=== PATIENT | female | born 1965 | race Caucasian/White ===

== ENCOUNTER 2018-03-07 16:20 | Emergency (ER) | payer MEDICAID, OTHER ==
[~2018-03-07] VITALS: Ht 154.9 cm; Wt 93.0 kg
[2018-03-07] MEDS ORDERED: ipratropium/albuterol 3ml nebule NEB ONE (16:30)
[2018-03-07] MEDS ORDERED: methylPREDNISolone sod succ 125mg/2ml vial IV ONE (16:30)
[2018-03-07 17:08] LABS: BASOPHILS # (AUTO) 0.1 X10'3 (0-0.2); BASOPHILS % (AUTO) 2.6 % (0-1); EOSINOPHILS # (AUTO) 0.2 X10'3 (0-0.9); EOSINOPHILS % (AUTO) 5.5 % (0-6); HEMATOCRIT 28.6 % (35.0-45.0); HEMOGLOBIN 9.8 g/dl (12.0-16.0); LYMPHOCYTES # (AUTO) 0.9 X10'3 (1.1-4.8); LYMPHOCYTES % (AUTO) 22.1 % (21-51); MEAN CORPUSCULAR HEMOGLOBIN 31.8 PG (27.0-31.0); MEAN CORPUSCULAR HGB CONC 34.4 g/dL (33.0-36.5); MEAN CORPUSCULAR VOLUME 92.4 FL (78-98); MEAN PLATELET VOLUME 8.4 FL (7.4-10.4); MONOCYTES # (AUTO) 0.3 X10'3 (0-0.9); MONOCYTES % (AUTO) 7.6 % (2-12); NEUTROPHILS # (AUTO) 2.5 X10'3 (1.8-7.7); NEUTROPHILS % (AUTO) 62.2 % (42-75); PLATELET COUNT 67 X10'3 (140-440); RED BLOOD COUNT 3.09 X10'6 (4.20-5.60); RED CELL DISTRIBUTION WIDTH 14.4 % (11.5-14.5); WHITE BLOOD COUNT 4.1 X10'3 (4.5-11.0)
[2018-03-07 17:21] LABS: ALANINE AMINOTRANSFERASE 27 U/L (12-78); ALBUMIN 2.6 G/DL (3.4-5.0); ALBUMIN/GLOBULIN RATIO 0.8 (1.1-1.5); ALKALINE PHOSPHATASE 110 IU/L (46-116); ANION GAP 9 (8-16); ASPARTATE AMINO TRANSFERASE 30 U/L (10-37); BILIRUBIN,TOTAL 0.8 MG/DL (0.1-1.0); BLOOD UREA NITROGEN 26 MG/DL (7-18); BUN/CREATININE RATIO 20.6 (6.6-38.0); CALCIUM 8.6 MG/DL (8.5-10.1); CHLORIDE 114 MMOL/L (99-107); CREATININE 1.26 MG/DL (0.40-0.90); GLUCOSE 56 MG/DL (70-104); POTASSIUM 4.1 MMOL/L (3.5-5.1); SODIUM 145 MMOL/L (135-145); TOTAL CARBON DIOXIDE 22.2 MMOL/L (24-32); eGFR 44 ML/MIN
--- NOTE | 2018-03-07 17:40 | NUR ---
pt is resting quietly on gurney, resp even and unlabored
--- NOTE | 2018-03-07 17:52 | NUR ---
PT AMB WITH MIN ASSIST TO RESTROOM
[2018-03-07] MEDS ORDERED: AZIT250T83 PO (18:13)
[2018-03-07] MEDS ORDERED: oxyCODONE IR 5mg (immed. release) tablet PO ONE (18:45)
[2018-03-07 18:53] VITALS: BP 124/73
[2018-03-08 10:41] LABS: OCCULT BLOOD STOOL NEGATIVE (Neg)
== END 2018-03-07 19:00 | disposition home or self-care (01) ==
LOC: ER 16:20
DX: I85.00 Esophageal varices without bleeding (principal); R42 Dizziness and giddiness; G89.29 Other chronic pain; D64.9 Anemia, unspecified; R05 Cough; Z90.710 Acquired absence of both cervix and uterus; Z95.0 Presence of cardiac pacemaker; Z88.0 Allergy status to penicillin; Z88.5 Allergy status to narcotic agent; Z88.1 Allergy status to other antibiotic agents; Z88.6 Allergy status to analgesic agent; Z88.2 Allergy status to sulfonamides
CPT/HCPCS: 36415; 71045; 80053; 82272; 82948; 85025; 93005; 94640; 94760; 96374; 99284; J2930

== ENCOUNTER 2018-03-12 21:15 | Emergency (ER) | payer MEDICAID ==
[~2018-03-12] VITALS: Ht 154.9 cm; Wt 100.0 kg
[~2018-03-12 21:15] MED LIST: AZIT250T83 PO
[2018-03-12 21:46] LABS: BASOPHILS % (AUTO) 0.4 % (0-1); EOSINOPHILS # (AUTO) 0.2 X10'3 (0-0.9); HEMATOCRIT 32.1 % (35.0-45.0); LYMPHOCYTES # (AUTO) 0.9 X10'3 (1.1-4.8); LYMPHOCYTES % (AUTO) 21.8 % (21-51); MEAN CORPUSCULAR HEMOGLOBIN 31.7 PG (27.0-31.0); MEAN CORPUSCULAR HGB CONC 34.4 g/dL (33.0-36.5); MEAN CORPUSCULAR VOLUME 92.1 FL (78-98); MEAN PLATELET VOLUME 7.7 FL (7.4-10.4); MONOCYTES # (AUTO) 0.3 X10'3 (0-0.9); MONOCYTES % (AUTO) 8.3 % (2-12); NEUTROPHILS # (AUTO) 2.7 X10'3 (1.8-7.7); NEUTROPHILS % (AUTO) 64.5 % (42-75); PLATELET COUNT 77 X10'3 (140-440); RED BLOOD COUNT 3.48 X10'6 (4.20-5.60); RED CELL DISTRIBUTION WIDTH 14.2 % (11.5-14.5); WHITE BLOOD COUNT 4.2 X10'3 (4.5-11.0)
[2018-03-12 22:05] LABS: INR 1.2 INR; PARTIAL THROMBOPLASTIN TIME 29 SECONDS (22-32); PROTHROMBIN TIME 12.1 SECONDS (9.0-12.0)
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
[2018-03-12 22:06] LABS: ALANINE AMINOTRANSFERASE 35 U/L (12-78); ALBUMIN/GLOBULIN RATIO 0.8 (1.1-1.5); ALKALINE PHOSPHATASE 120 IU/L (46-116); ANION GAP 6 (8-16); ASPARTATE AMINO TRANSFERASE 34 U/L (10-37); BILIRUBIN,TOTAL 1.1 MG/DL (0.1-1.0); BLOOD UREA NITROGEN 26 MG/DL (7-18); BUN/CREATININE RATIO 18.7 (6.6-38.0); CHLORIDE 111 MMOL/L (99-107); CREATININE 1.39 MG/DL (0.40-0.90); GLUCOSE 102 MG/DL (70-104); POTASSIUM 5.3 MMOL/L (3.5-5.1); SODIUM 144 MMOL/L (135-145); TOTAL CARBON DIOXIDE 27.5 MMOL/L (24-32); TOTAL PROTEIN 6.9 G/DL (6.4-8.2); eGFR 40 ML/MIN
[2018-03-12] MEDS ORDERED: sodium polystyrene sulfonate 15gm/60ml oral suspension PO ONE ×2 (22:30→23:50)
[2018-03-12 22:49] LABS: D-DIMER 0.65 MG/L FEU (0-0.50)
[2018-03-12] MEDS ORDERED: normal saline 1000ML IV soln IVB ONE (23:10)
[2018-03-12] MEDS ORDERED: iohexol 350MG/ML 100ml bottle IV ONE (23:24)
[2018-03-12] MEDS ORDERED: SYN0.088T PO (23:40)
[2018-03-12] MEDS ORDERED: POTA10TA10 PO (23:40)
[2018-03-12] MEDS ORDERED: LACT10SO PO (23:40)
[2018-03-12] MEDS ORDERED: ALBU18HF2 INH (23:40)
[2018-03-12] MEDS ORDERED: PER5325T PO (23:40)
[2018-03-12] MEDS ORDERED: FURO-150 PO (23:40)
--- NOTE | 2018-03-12 23:53 | NUR ---
Pt up to the BR and now going out to CT via w/c. Spouse remains in the room.
--- NOTE | 2018-03-13 00:08 | NUR ---
pt back from ct
[2018-03-13] MEDS ORDERED: HYDROcodone/acetaminophen 5mg/325mg tablet PO ONE (00:15)
--- NOTE | 2018-03-13 00:15 | NUR ---
notified MD of the patient having some pain, and that she wouldl like some pain medicine.
--- NOTE | 2018-03-13 00:21 | NUR ---
gave pt a liter of ice water.
[2018-03-13 01:31] VITALS: BP 125/59
== END 2018-03-13 01:41 | disposition home or self-care (01) ==
LOC: ER 21:21
DX: R06.02 Shortness of breath (principal); R07.9 Chest pain, unspecified; R61 Generalized hyperhidrosis; Z90.710 Acquired absence of both cervix and uterus; Z95.0 Presence of cardiac pacemaker; Z88.0 Allergy status to penicillin; Z88.5 Allergy status to narcotic agent; Z88.2 Allergy status to sulfonamides; Z88.6 Allergy status to analgesic agent; Z88.8 Allergy status to other drugs, medicaments and biological substances; Z79.899 Other long term (current) drug therapy
CPT/HCPCS: 36415; 71045; 71275; 80053; 83880; 84484; 85025; 85379; 85610; 85730; 93005; 99284; J7030; Q9967

== ENCOUNTER 2018-03-25 22:51 | Emergency (ER) | payer MEDICAID ==
[~2018-03-25] VITALS: Ht 154.9 cm; Wt 85.5 kg
[~2018-03-25 22:51] MED LIST changes: +ALBU18HF2 INH; -AZIT250T83 PO; +FURO-150 PO; +LACT10SO PO; +PER5325T PO; +POTA10TA10 PO; +SYN0.088T PO
[2018-03-25 22:57] VITALS: BP 141/65
[2018-03-26] MEDS ORDERED: oxyCODONE/APAP 5-325mg tablet PO ONE (01:05)
[2018-03-26 01:07] LABS: CLARITY,URINE CLEAR (Clear); COLOR,URINE YELLOW (Yellow); GLUCOSE, URINE NEGATIVE (Neg); KETONES,URINE NEGATIVE (Neg); LEUKOCYTE ESTERASE ,URINE TRACE (Neg); NITRITES, URINE NEGATIVE (Neg); OCCULT BLOOD,URINE TRACE-INTACT (Neg); PH,URINE 5.5 (4.8-8.0); PROTEIN,URINE NEGATIVE (Neg); UROBILINOGEN,URINE 0.2 E.U/dL (0.2-1.0)
[2018-03-26 01:08] LABS: UA COLLECTION TYPE CLN CATCH MIDSTREAM
[2018-03-26 01:33] LABS: BACTERIA,URINE 2+ /HPF (Neg); MUCUS STRANDS FEW /LPF (Neg); RBC,URINE 0-2 /HPF (0-2); SQUAMOUS EPITHELIAL CELL,UR FEW /LPF (FEW); WBC,URINE 0-4 /HPF (0-4)
--- NOTE | 2018-03-26 01:52 | NUR ---
PT WENT TO CT AND IS NOW BACK FROM CT.
[2018-03-26] MEDS ORDERED: levoFLOXACIN 250mg tablet PO ONE (02:20)
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
[2018-03-26] MEDS ORDERED: LEVO250T58 PO (02:34)
[2018-03-26 02:37] LABS: ALANINE AMINOTRANSFERASE 32 U/L (12-78); ALBUMIN 3.2 G/DL (3.4-5.0); ALBUMIN/GLOBULIN RATIO 0.9 (1.1-1.5); ALKALINE PHOSPHATASE 99 IU/L (46-116); ANION GAP 10 (8-16); ASPARTATE AMINO TRANSFERASE 46 U/L (10-37); BILIRUBIN,TOTAL 2.4 MG/DL (0.1-1.0); BLOOD UREA NITROGEN 14 MG/DL (7-18); BUN/CREATININE RATIO 10.1 (6.6-38.0); CALCIUM 9.3 MG/DL (8.5-10.1); CHLORIDE 109 MMOL/L (99-107); CREATININE 1.38 MG/DL (0.40-0.90); GLUCOSE 85 MG/DL (70-104); SODIUM 142 MMOL/L (135-145); TOTAL CARBON DIOXIDE 22.8 MMOL/L (24-32); TOTAL PROTEIN 6.9 G/DL (6.4-8.2); eGFR 40 ML/MIN
[2018-03-26 03:35] LABS: BASOPHILS % (AUTO) 0.3 % (0-1); EOSINOPHILS # (AUTO) 0.3 X10'3 (0-0.9); EOSINOPHILS % (AUTO) 7.7 % (0-6); HEMATOCRIT 34.8 % (35.0-45.0); LYMPHOCYTES # (AUTO) 1.2 X10'3 (1.1-4.8); LYMPHOCYTES % (AUTO) 29.1 % (21-51); MEAN CORPUSCULAR HGB CONC 34.3 g/dL (33.0-36.5); MEAN CORPUSCULAR VOLUME 93.2 FL (78-98); MEAN PLATELET VOLUME 8.5 FL (7.4-10.4); MONOCYTES # (AUTO) 0.3 X10'3 (0-0.9); MONOCYTES % (AUTO) 6.7 % (2-12); NEUTROPHILS # (AUTO) 2.5 X10'3 (1.8-7.7); NEUTROPHILS % (AUTO) 56.2 % (42-75); PLATELET COUNT 79 X10'3 (140-440); RED BLOOD COUNT 3.73 X10'6 (4.20-5.60); RED CELL DISTRIBUTION WIDTH 14.4 % (11.5-14.5); WHITE BLOOD COUNT 4.3 X10'3 (4.5-11.0)
== END 2018-03-26 03:57 | disposition home or self-care (01) ==
LOC: ER 22:52
DX: N39.0 Urinary tract infection, site not specified (principal); Z90.710 Acquired absence of both cervix and uterus; Z88.0 Allergy status to penicillin; Z88.5 Allergy status to narcotic agent; Z88.2 Allergy status to sulfonamides; Z88.6 Allergy status to analgesic agent; Z88.8 Allergy status to other drugs, medicaments and biological substances; Z79.899 Other long term (current) drug therapy; Z95.0 Presence of cardiac pacemaker
CPT/HCPCS: 36415; 74176; 80053; 81001; 85025; 87077; 87088; 87186; 99284

== ENCOUNTER 2018-06-11 11:55 | Day surgery (SDC) | payer MEDICAID ==
[~2018-06-11] VITALS: Ht 154.9 cm; Wt 90.9 kg
[2018-06-11 12:10] VITALS: BP 137/51
[2018-06-11] MEDS ORDERED: MIDAZolam 5mg/5ml vial ONE (12:26)
[2018-06-11] MEDS ORDERED: LIDOcaine Viscous 15ml cup ONE (12:26)
[2018-06-11] MEDS ORDERED: fentaNYL/PF 50MCG/1 ML 2ML syringe ONE (12:26)
[2018-06-11 13:07] VITALS: BP 117/72
[2018-06-11 13:17] VITALS: BP 108/62
[2018-06-11 13:27] VITALS: BP 101/68
[2018-06-11 13:32] VITALS: BP 107/64
== END 2018-06-11 13:40 | disposition home or self-care (01) ==
LOC: GI LAB 11:55
PROVIDERS: ATTEND Internal Medicine Gastroenterology
DX: I85.00 Esophageal varices without bleeding (principal); K76.6 Portal hypertension; K31.89 Other diseases of stomach and duodenum
CPT/HCPCS: 43235; J2250; J3010; J7030; 99152; A4620

== ENCOUNTER 2018-06-30 13:26 | Inpatient (IN) | payer MEDICAID ==
[~2018-06-30] VITALS: Ht 154.9 cm; Wt 90.0 kg
[~2018-06-30 13:26] MED LIST changes: -FURO-150 PO; -LACT10SO PO; -PER5325T PO; -POTA10TA10 PO
[2018-06-30 14:19] LABS: PARTIAL THROMBOPLASTIN TIME 31 SECONDS (22-32)
[2018-06-30 14:25] LABS: ALANINE AMINOTRANSFERASE 27 U/L (12-78); ALBUMIN 3.2 G/DL (3.4-5.0); ALBUMIN/GLOBULIN RATIO 0.9 (1.1-1.5); ALKALINE PHOSPHATASE 106 IU/L (46-116); ANION GAP 14 (8-16); ASPARTATE AMINO TRANSFERASE 33 U/L (10-37); BLOOD UREA NITROGEN 21 MG/DL (7-18); BUN/CREATININE RATIO 8.7 (6.6-38.0); CALCIUM 9.3 MG/DL (8.5-10.1); CHLORIDE 105 MMOL/L (99-107); CREATININE 2.41 MG/DL (0.40-0.90); GLUCOSE 112 MG/DL (70-104); SODIUM 138 MMOL/L (135-145); TOTAL CARBON DIOXIDE 18.8 MMOL/L (24-32); TOTAL PROTEIN 6.7 G/DL (6.4-8.2); eGFR 21 ML/MIN
[2018-06-30 14:43] LABS: BASOPHILS % (AUTO) 0.5 % (0-1); EOSINOPHILS # (AUTO) 0.2 X10'3 (0-0.9); EOSINOPHILS % (AUTO) 1.8 % (0-6); HEMOGLOBIN 11.4 g/dl (12.0-16.0); LYMPHOCYTES # (AUTO) 1.3 X10'3 (1.1-4.8); LYMPHOCYTES % (AUTO) 14.5 % (21-51); MEAN CORPUSCULAR HEMOGLOBIN 31.5 PG (27.0-31.0); MEAN CORPUSCULAR HGB CONC 34.7 g/dL (33.0-36.5); MEAN CORPUSCULAR VOLUME 90.9 FL (78-98); MONOCYTES # (AUTO) 0.6 X10'3 (0-0.9); MONOCYTES % (AUTO) 7.3 % (2-12); NEUTROPHILS # (AUTO) 6.7 X10'3 (1.8-7.7); NEUTROPHILS % (AUTO) 75.9 % (42-75); PLATELET COUNT 93 X10'3 (140-440); RED BLOOD COUNT 3.63 X10'6 (4.20-5.60); WHITE BLOOD COUNT 8.8 X10'3 (4.5-11.0)
[2018-06-30] MEDS ORDERED: normal saline 1000ml 1,000 ML IV ONE ×2 (14:45→17:15)
[2018-06-30] MEDS ORDERED: ondansetron/PF 4mg/2ml inj IV ONE (15:10)
[2018-06-30] MEDS ORDERED: LORazepam 2 mg/ml vial IV ONE (15:20)
[2018-06-30 15:35] LABS: LIPASE 254 U/L (73-393)
[2018-06-30] MEDS ORDERED: pantoprazole 40 MG vial IV ONE (15:45)
[2018-06-30] MEDS ORDERED: octreotide 100mcg/1 ml ampule IV ONE (15:45)
[2018-06-30] MEDS: pantoprazole 40MG/NS 100ML BAG 100 ML IV SCH ×2 (16:06→21:38)
[2018-06-30] MEDS ORDERED: mag hydrox/Alum hydrox/simeth 30ml oral suspension PO PRN (16:55)
[2018-06-30] MEDS ORDERED: potassium CL 10mEq/100ml bag 100 ML IV PRN (16:55)
[2018-06-30] MEDS ORDERED: potassium Cl 20 mEq SR tablet PO PRN ×2 (16:55)
[2018-06-30] MEDS ORDERED: magnesium hydroxide 30ml (MOM) UD suspension PO PRN (16:55)
[2018-06-30] MEDS ORDERED: acetaminophen 325mg tablet PO PRN ×2 (16:55)
[2018-06-30] MEDS ORDERED: magnesium Cl slow-release 64mg tablet PO PRN (16:55)
[2018-06-30] MEDS ORDERED: magnesium 4gm in 100ml NS 100 ML IV PRN (16:55)
[2018-06-30] MEDS ORDERED: potassium Cl 40MEQ/NS 500ml 500 ML IV PRN (16:55)
[2018-06-30] MEDS ORDERED: magnesium 2GM in 50ml NS 50 ML IV PRN (16:55)
[2018-06-30 17:17] LABS: OCCULT BLOOD STOOL POSITIVE (Neg)
[2018-06-30] MEDS ORDERED: morphine 2 MG/ML inj. syringe IV ONE (17:25)
--- NOTE | 2018-06-30 17:34 | NUR ---
Received patient report from ER nurse Veda DAIGLE. Awaiting arrival to room 356B.
[2018-06-30 17:39] LABS: HEMATOCRIT 31.6 % (35.0-45.0); MEAN CORPUSCULAR HEMOGLOBIN 31.4 PG (27.0-31.0); MEAN CORPUSCULAR HGB CONC 34.7 g/dL (33.0-36.5); MEAN CORPUSCULAR VOLUME 90.4 FL (78-98); MEAN PLATELET VOLUME 8.4 FL (7.4-10.4); PLATELET COUNT 94 X10'3 (140-440); RED CELL DISTRIBUTION WIDTH 15.5 % (11.5-14.5); WHITE BLOOD COUNT 9.1 X10'3 (4.5-11.0)
[2018-06-30] MEDS ORDERED: morphine 2 MG/ML inj. syringe IV PRN (17:55)
[2018-06-30 18:00] VITALS: BP 98/71
--- NOTE | 2018-06-30 18:00 | NUR ---
Patient arrived to room 356B. VSS. Patient oriented to room, call light, bed controls. at bedside.
[2018-06-30] MEDS ORDERED: normal saline 1000ml 1,000 ML IV PRN (18:05)
--- NOTE | 2018-06-30 18:45 | NUR ---
Problems reprioritized. Patient report given, questions answered & plan of care reviewed with Surinder DAIGLE.
--- NOTE | 2018-06-30 18:50 | NUR ---
Patient in room NIA 356. I have received report from LAURA DAIGLE and had the opportunity to ask questions and assume patient care.
[2018-06-30] MEDS: ondansetron/PF 4mg/2ml inj IV PRN (18:58)
[2018-06-30] MEDS: morphine 2 MG/ML inj. syringe IV PRN ×2 (18:59→23:55)
[2018-06-30] MEDS ORDERED: dextrose ORAL solution 15 GM/59 ML bottle PO PRN ×2 (19:40)
[2018-06-30] MEDS ORDERED: glucagon, human recombinant 1mg kit SUBCUT PRN (19:40)
[2018-06-30] MEDS ORDERED: dextrose 50%-water 50ml dispensing syringe IV PRN ×2 (19:40)
[2018-06-30] MEDS: OCTREOTIDE 1,250 MCG in NS 250ml IV.SOLN IV SCH (19:48)
--- NOTE | 2018-06-30 22:00 | NUR ---
BLADDER SCAN DONE WITH READING OF 116ML, NO COMPLAINTS OF DISCOMFORT. WILL REPEAT BLADDER SCAN IN 4 HOURS.
[2018-07-01] VITALS (12 sets, daily range): BP systolic 91–131; BP diastolic 33–98
[2018-07-01] MEDS: pantoprazole 40MG/NS 100ML BAG 100 ML IV SCH ×4 (01:00→16:00)
--- NOTE | 2018-07-01 01:30 | NUR ---
BLADDER SCAN DONE WITH RESULT OF 237ML. PATIENT HAS NO DISCOMFORT.
[2018-07-01] MEDS: morphine 2 MG/ML inj. syringe IV PRN ×4 (03:49→21:25)
--- NOTE | 2018-07-01 05:00 | NUR ---
BLADDER SCAN 320ML STILL UNABLE TO URINATE. CROCKETT CATH INSERTED ASEPTICALLY ORDERED.
[2018-07-01 05:37] LABS: CLARITY,URINE SLIGHTLY CLOUDY (Clear); COLOR,URINE YELLOW (Yellow); GLUCOSE, URINE NEGATIVE (Neg); KETONES,URINE TRACE mg/dl (Neg); LEUKOCYTE ESTERASE ,URINE NEGATIVE (Neg); NITRITES, URINE NEGATIVE (Neg); OCCULT BLOOD,URINE NEGATIVE (Neg); PH,URINE 5.5 (4.8-8.0); PROTEIN,URINE 30 mg/dl (Neg); UROBILINOGEN,URINE 0.2 E.U/dL (0.2-1.0)
[2018-07-01 05:38] LABS: URINE HCG NEGATIVE (NEG)
[2018-07-01 06:01] LABS: UA COLLECTION TYPE OTHER
[2018-07-01 06:02] LABS: AMORPHOUS URATES 1+; BACTERIA,URINE NONE SEEN /HPF (Neg); MUCUS STRANDS MODERATE /LPF (Neg); SQUAMOUS EPITHELIAL CELL,UR FEW /LPF (FEW); WBC,URINE 0-4 /HPF (0-4)
[2018-07-01 06:07] LABS: ANION GAP 13 (8-16); BLOOD UREA NITROGEN 26 MG/DL (7-18); BUN/CREATININE RATIO 7.6 (6.6-38.0); CALCIUM 8.5 MG/DL (8.5-10.1); CHLORIDE 103 MMOL/L (99-107); CREATININE 3.41 MG/DL (0.40-0.90); GLUCOSE 107 MG/DL (70-104); MAGNESIUM 1.6 MG/DL (1.5-2.4); POTASSIUM 4.1 MMOL/L (3.5-5.1); SODIUM 135 MMOL/L (135-145); TOTAL CARBON DIOXIDE 19.5 MMOL/L (24-32); eGFR 14 ML/MIN
[2018-07-01 06:15] LABS: BASOPHILS % (AUTO) 0.5 % (0-1); EOSINOPHILS # (AUTO) 0.2 X10'3 (0-0.9); EOSINOPHILS % (AUTO) 2.6 % (0-6); HEMATOCRIT 29.4 % (35.0-45.0); HEMOGLOBIN 10.4 g/dl (12.0-16.0); LYMPHOCYTES # (AUTO) 1.5 X10'3 (1.1-4.8); LYMPHOCYTES % (AUTO) 22.5 % (21-51); MEAN CORPUSCULAR HGB CONC 35.5 g/dL (33.0-36.5); MEAN CORPUSCULAR VOLUME 90.2 FL (78-98); MEAN PLATELET VOLUME 8.3 FL (7.4-10.4); MONOCYTES # (AUTO) 0.6 X10'3 (0-0.9); MONOCYTES % (AUTO) 9.7 % (2-12); NEUTROPHILS # (AUTO) 4.3 X10'3 (1.8-7.7); NEUTROPHILS % (AUTO) 64.7 % (42-75); PLATELET COUNT 76 X10'3 (140-440); RED BLOOD COUNT 3.25 X10'6 (4.20-5.60); RED CELL DISTRIBUTION WIDTH 15.3 % (11.5-14.5); WHITE BLOOD COUNT 6.6 X10'3 (4.5-11.0)
--- NOTE | 2018-07-01 06:30 | NUR ---
Problems reprioritized. Patient report given, questions answered & plan of care reviewed with RAMÓN DAIGLE.
[2018-07-01] MEDS: K and/or MAG REPLACEMENT MC SCH (07:43)
[2018-07-01] MEDS ORDERED: LIDOcaine Viscous 15ml cup ONE (09:34)
[2018-07-01] MEDS ORDERED: fentaNYL/PF 50MCG/1 ML 2ML syringe ONE ×2 (09:34→09:35)
[2018-07-01] MEDS ORDERED: MIDAZolam 5mg/5ml vial ONE (09:34)
[2018-07-01] MEDS ORDERED: normal saline 1000ml 1,000 ML IVB ONE (13:29)
[2018-07-01] MEDS: OCTREOTIDE 1,250 MCG in NS 250ml IV.SOLN IV SCH (19:05)
[2018-07-01] MEDS: diatr meglu/diatrizoate 30ml oral sol.-(3 dose) bottle PO SCH (21:10)
[2018-07-01] MEDS: pantoprazole 40mg Tablet.DR PO SCH (21:10)
[2018-07-02] VITALS: BP 89/44
[2018-07-02] MEDS: morphine 2 MG/ML inj. syringe IV PRN ×5 (02:50→22:12)
[2018-07-02 05:32] LABS: ALBUMIN 2.7 G/DL (3.4-5.0); ANION GAP 7 (8-16); BLOOD UREA NITROGEN 36 MG/DL (7-18); BUN/CREATININE RATIO 9.7 (6.6-38.0); CALCIUM 8.2 MG/DL (8.5-10.1); CHLORIDE 107 MMOL/L (99-107); CREATININE 3.73 MG/DL (0.40-0.90); GLUCOSE 97 MG/DL (70-104); POTASSIUM 4.4 MMOL/L (3.5-5.1); SODIUM 135 MMOL/L (135-145); TOTAL CARBON DIOXIDE 20.8 MMOL/L (24-32); eGFR 13 ML/MIN
[2018-07-02 05:52] LABS: BASOPHILS % (AUTO) 0.2 % (0-1); EOSINOPHILS # (AUTO) 0.1 X10'3 (0-0.9); EOSINOPHILS % (AUTO) 2.3 % (0-6); HEMATOCRIT 26.3 % (35.0-45.0); HEMOGLOBIN 9.4 g/dl (12.0-16.0); LYMPHOCYTES # (AUTO) 0.7 X10'3 (1.1-4.8); LYMPHOCYTES % (AUTO) 18.2 % (21-51); MEAN CORPUSCULAR HEMOGLOBIN 32.1 PG (27.0-31.0); MEAN CORPUSCULAR HGB CONC 35.6 g/dL (33.0-36.5); MEAN CORPUSCULAR VOLUME 90.1 FL (78-98); MEAN PLATELET VOLUME 8.3 FL (7.4-10.4); MONOCYTES # (AUTO) 0.3 X10'3 (0-0.9); MONOCYTES % (AUTO) 8.9 % (2-12); NEUTROPHILS # (AUTO) 2.7 X10'3 (1.8-7.7); NEUTROPHILS % (AUTO) 70.4 % (42-75); RED BLOOD COUNT 2.92 X10'6 (4.20-5.60); RED CELL DISTRIBUTION WIDTH 15.3 % (11.5-14.5); WHITE BLOOD COUNT 3.9 X10'3 (4.5-11.0)
[2018-07-02 06:51] LABS: PLATELET COUNT 47 X10'3 (140-440); PLATELET ESTIMATE DECREASED; POLYCHROMASIA 1+
--- NOTE | 2018-07-02 06:51 | NUR ---
Problems reprioritized. Patient report given, questions answered & plan of care reviewed with RAMÓN. Addendum: 07/02/18 at 0652 by Hank Wright RN Amended: Links added.
[2018-07-02 06:52] LABS: ANISOCYTOSIS 1+; ELLIPTOCYTES 1+
[2018-07-02 07:00] VITALS: BP 94/43
[2018-07-02] MEDS: diatr meglu/diatrizoate 30ml oral sol.-(3 dose) bottle PO SCH ×2 (07:04→21:00)
[2018-07-02] MEDS: levoTHYROXINE 88mcg tablet PO SCH (07:04)
[2018-07-02] MEDS: K and/or MAG REPLACEMENT MC SCH (07:26)
[2018-07-02] MEDS: pantoprazole 40mg Tablet.DR PO SCH ×2 (09:00→20:56)
[2018-07-02 12:00] VITALS: BP 105/53
[2018-07-02 17:00] VITALS: BP_SYST 104; BP_SYST 112; BP_SYST 85; BP_DIAS 40; BP_DIAS 50; BP_DIAS 71
--- NOTE | 2018-07-02 18:00 | NUR ---
Patient in room NIA 356. I have received report from Lesly DAIGLE and had the opportunity to ask questions and assume patient care. Patient awake in bed. at bedside. Denies further needs.
[2018-07-02 20:00] VITALS: BP 107/56
[2018-07-03] VITALS: BP 110/62
[2018-07-03 04:53] LABS: BASOPHILS % (AUTO) 0.9 % (0-1); EOSINOPHILS # (AUTO) 0.1 X10'3 (0-0.9); EOSINOPHILS % (AUTO) 2.5 % (0-6); HEMATOCRIT 29.3 % (35.0-45.0); HEMOGLOBIN 10.3 g/dl (12.0-16.0); LYMPHOCYTES # (AUTO) 0.7 X10'3 (1.1-4.8); LYMPHOCYTES % (AUTO) 22.8 % (21-51); MEAN CORPUSCULAR HEMOGLOBIN 31.9 PG (27.0-31.0); MEAN CORPUSCULAR HGB CONC 35.3 g/dL (33.0-36.5); MEAN CORPUSCULAR VOLUME 90.4 FL (78-98); MEAN PLATELET VOLUME 8.5 FL (7.4-10.4); MONOCYTES # (AUTO) 0.2 X10'3 (0-0.9); MONOCYTES % (AUTO) 7.9 % (2-12); NEUTROPHILS % (AUTO) 65.9 % (42-75); RED BLOOD COUNT 3.24 X10'6 (4.20-5.60); RED CELL DISTRIBUTION WIDTH 15.5 % (11.5-14.5)
[2018-07-03 04:57] LABS: ALBUMIN 2.8 G/DL (3.4-5.0); ANION GAP 9 (8-16); BLOOD UREA NITROGEN 33 MG/DL (7-18); CALCIUM 8.6 MG/DL (8.5-10.1); CHLORIDE 112 MMOL/L (99-107); CREATININE 2.76 MG/DL (0.40-0.90); GLUCOSE 83 MG/DL (70-104); MAGNESIUM 2.1 MG/DL (1.5-2.4); POTASSIUM 4.3 MMOL/L (3.5-5.1); SODIUM 143 MMOL/L (135-145); TOTAL CARBON DIOXIDE 22.2 MMOL/L (24-32); eGFR 18 ML/MIN
--- NOTE | 2018-07-03 05:00 | NUR ---
Removed mcclelland catheter per protocol and patient request. Will continue to monitor.
[2018-07-03 05:01] LABS: PLATELET COUNT 50 X10'3 (140-440)
--- NOTE | 2018-07-03 05:44 | NUR ---
Verbally informed Dr. Lu of critical low platelet of 50. Will continue to monitor.
[2018-07-03] MEDS: morphine 2 MG/ML inj. syringe IV PRN ×4 (05:49→21:37)
--- NOTE | 2018-07-03 06:07 | NUR ---
Observed and reviewed charting of Toby DAIGLE, agreed with care.
--- NOTE | 2018-07-03 06:33 | NUR ---
Problems reprioritized. Patient report given, questions answered & plan of care reviewed with Jerrica DAIGLE.
--- NOTE | 2018-07-03 06:55 | NUR ---
Patient in room NIA 356. I have received report from Sarah DAIGLE and Toby DAIGLE and had the opportunity to ask questions and assume patient care.
[2018-07-03 06:59] VITALS: BP 103/59
[2018-07-03] MEDS: K and/or MAG REPLACEMENT MC SCH (07:22)
[2018-07-03] MEDS: levoTHYROXINE 88mcg tablet PO SCH (07:24)
[2018-07-03] MEDS: pantoprazole 40mg Tablet.DR PO SCH (07:24)
[2018-07-03 08:14] LABS: PLATELET ESTIMATE DECREASED; TOTAL CELLS COUNTED 100
[2018-07-03 08:15] LABS: ELLIPTOCYTES 1+; POLYCHROMASIA 1+; TOXIC GRANULATION 2+
[2018-07-03 08:20] LABS: ANISOCYTOSIS 1+
[2018-07-03 08:48] VITALS: BP_SYST 103; BP_SYST 118; BP_SYST 133; BP_DIAS 59; BP_DIAS 76
[2018-07-03 11:42] VITALS: BP 116/46
--- NOTE | 2018-07-03 13:19 | NUR ---
Dr. Moseley met w/ pt, , PILO Becerril, ROSIE Ahumada, and myself to review POC and discussion pt's history, [facility] consultations, current labs, tests and pt's pain level. Call placed to Dr. Rooney's clinic ([phone]) to request Dr. Rooney call Dr. Moseley to discuss pt's case and possible transfer to [facility]. Pt appears stable at this time yet pt and are very concerned about labs being worse than baseline and pt c/o extreme upper R abd pain w/ spasms q4h, as Morphine doses wear off. and pt state they would prefer care to be provided by [facility] or an MD familiar w/ hepatology. Dr. Allen aware also, per Hanna Maria RN and PILO Colon (angio).
[2018-07-03 13:29] LABS: ALANINE AMINOTRANSFERASE 28 U/L (12-78); ALBUMIN/GLOBULIN RATIO 0.8 (1.1-1.5); ALKALINE PHOSPHATASE 79 IU/L (46-116); ASPARTATE AMINO TRANSFERASE 37 U/L (10-37); BILIRUBIN,DIRECT 0.4 MG/DL (0-0.3); TOTAL PROTEIN 6.2 G/DL (6.4-8.2)
--- NOTE | 2018-07-03 14:17 | NUR ---
Dr. Moseley informed pt of Bili = 1.0 (AOT) and plan to recheck labs in am. Pt denies more questions at this time. Return call from Dr. Rooney to Dr. Moseley still pending.
[2018-07-03] MEDS ORDERED: morphine ER 15mg tablet PO PRN (15:45)
[2018-07-03] MEDS ORDERED: dicyclomine 10 MG capsule PO PRN (15:45)
--- NOTE | 2018-07-03 16:01 | NUR ---
Dr. Moseley paged and informed of left ear drainage and itchiness. MD stated he will not be ordering any antibiotics unless symptoms get worse so he can see if kidney/liver function improves without any additional medications added. No new orders at this time. Informed pt/ of plan.
--- NOTE | 2018-07-03 17:38 | NUR ---
Dr. Rooney's nurse called w/ [facility] number ([phone]) in case pt deteriorates and transfer is required. Dr. Moseley was contacted and stated he has spoken w/ Dr Rooney and orders will be entered by MD to infuse albumin tonight and in the am, and a paracentesis will be performed to analyze/culture abd fluid tomorrow. Jerrica RN, Pt, and aware.
--- NOTE | 2018-07-03 18:00 | NUR ---
Patient in room NIA 356. I have received report from Jerrica DAIGLE and had the opportunity to ask questions and assume patient care. Patient awake in bed with at bedside.
--- NOTE | 2018-07-03 18:22 | NUR ---
Problems reprioritized. Patient report given, questions answered & plan of care reviewed with Sarah DAIGLE and Toby DAIGLE.
[2018-07-03] MEDS: ondansetron/PF 4mg/2ml inj IV PRN (18:27)
[2018-07-03 20:00] VITALS: BP 116/48
[2018-07-03] MEDS: albumin (human) 25% 100ml IV 400 ML IV SCH (20:45)
[2018-07-04] VITALS: BP 124/54
--- NOTE | 2018-07-04 | NUR ---
Patient was reporting pain, dizziness, and nausea. Unable to assess orthostatics.
[2018-07-04] MEDS: morphine 2 MG/ML inj. syringe IV PRN ×2 (01:57→07:55)
[2018-07-04 05:43] LABS: BASOPHILS % (AUTO) 0.4 % (0-1); EOSINOPHILS % (AUTO) 3.4 % (0-6); HEMOGLOBIN 8.5 g/dl (12.0-16.0); LYMPHOCYTES # (AUTO) 0.4 X10'3 (1.1-4.8); MEAN CORPUSCULAR HEMOGLOBIN 32.1 PG (27.0-31.0); MEAN CORPUSCULAR HGB CONC 35.4 g/dL (33.0-36.5); MEAN CORPUSCULAR VOLUME 90.5 FL (78-98); MEAN PLATELET VOLUME 8.8 FL (7.4-10.4); MONOCYTES # (AUTO) 0.1 X10'3 (0-0.9); MONOCYTES % (AUTO) 9.7 % (2-12); NEUTROPHILS # (AUTO) 0.7 X10'3 (1.8-7.7); NEUTROPHILS % (AUTO) 53.5 % (42-75); RED BLOOD COUNT 2.65 X10'6 (4.20-5.60); RED CELL DISTRIBUTION WIDTH 15.8 % (11.5-14.5); WHITE BLOOD COUNT 1.3 X10'3 (4.5-11.0)
[2018-07-04 06:07] LABS: ALANINE AMINOTRANSFERASE 21 U/L (12-78); ALBUMIN 3.5 G/DL (3.4-5.0); ALBUMIN/GLOBULIN RATIO 1.3 (1.1-1.5); ALKALINE PHOSPHATASE 66 IU/L (46-116); ANION GAP 11 (8-16); ASPARTATE AMINO TRANSFERASE 24 U/L (10-37); BILIRUBIN,TOTAL 0.9 MG/DL (0.1-1.0); BLOOD UREA NITROGEN 29 MG/DL (7-18); BUN/CREATININE RATIO 13.9 (6.6-38.0); CALCIUM 8.7 MG/DL (8.5-10.1); CHLORIDE 114 MMOL/L (99-107); CREATININE 2.08 MG/DL (0.40-0.90); GLUCOSE 76 MG/DL (70-104); MAGNESIUM 1.9 MG/DL (1.5-2.4); POTASSIUM 4.3 MMOL/L (3.5-5.1); SODIUM 146 MMOL/L (135-145); TOTAL CARBON DIOXIDE 20.9 MMOL/L (24-32); TOTAL PROTEIN 6.3 G/DL (6.4-8.2); eGFR 25 ML/MIN
[2018-07-04 06:13] LABS: PLATELET COUNT 41 X10'3 (140-440)
--- NOTE | 2018-07-04 06:27 | NUR ---
Problems reprioritized. Patient report given, questions answered & plan of care reviewed with Ilsa DAIGLE.
--- NOTE | 2018-07-04 06:46 | NUR ---
Patient in room NIA 356. I have received report from Kalani DAIGLE and Toby RN and had the opportunity to ask questions and assume patient care.Patient resting with blankets pulled over head
--- NOTE | 2018-07-04 06:47 | NUR ---
Observed and reviewed charting of Toby DAIGLE, agreed with care.
[2018-07-04 07:00] VITALS: BP 120/74
[2018-07-04 07:29] VITALS: BP_SYST 104; BP_SYST 106; BP_SYST 120; BP_DIAS 54; BP_DIAS 64; BP_DIAS 74
[2018-07-04] MEDS: levoTHYROXINE 88mcg tablet PO SCH (07:54)
[2018-07-04] MEDS: K and/or MAG REPLACEMENT MC SCH (08:00)
[2018-07-04] MEDS ORDERED: pantoprazole 40mg Tablet.DR PO SCH (08:00)
[2018-07-04 10:29] LABS: SODIUM,URINE RANDOM 16 MEQ/L
[2018-07-04 10:30] LABS: TOTAL PROTEIN,URINE RANDOM < 6.0 MG/DL
[2018-07-04 10:33] LABS: CLARITY,URINE CLEAR (Clear); COLOR,URINE YELLOW (Yellow); GLUCOSE, URINE NEGATIVE (Neg); KETONES,URINE NEGATIVE (Neg); LEUKOCYTE ESTERASE ,URINE NEGATIVE (Neg); NITRITES, URINE NEGATIVE (Neg); OCCULT BLOOD,URINE MODERATE (Neg); PH,URINE 5.5 (4.8-8.0); PROTEIN,URINE NEGATIVE (Neg); UROBILINOGEN,URINE 0.2 E.U/dL (0.2-1.0)
[2018-07-04 10:48] LABS: UA COLLECTION TYPE NON-SPECIFIED
[2018-07-04 10:49] LABS: BACTERIA,URINE 2+ /HPF (Neg); RBC,URINE 0-2 /HPF (0-2); SQUAMOUS EPITHELIAL CELL,UR MODERATE /LPF (FEW); WBC,URINE 0-4 /HPF (0-4)
[2018-07-04 11:01] LABS: OSMOLALITY UA < 100 MOSM/K (50-1400)
--- NOTE | 2018-07-04 11:04 | NUR ---
Per Alethea with Angio we probably won't be doing patient today due to low platelets and she states Dr Moseley aware
[2018-07-04] MEDS: albumin (human) 25% 100ml IV 400 ML IV SCH (11:10)
[2018-07-04 11:45] LABS: TOTAL CELLS COUNTED 100
[2018-07-04 11:46] LABS: ANISOCYTOSIS 1+; PLATELET ESTIMATE DECREASED
[2018-07-04 11:47] LABS: ELLIPTOCYTES 1+; POLYCHROMASIA FEW; TEAR DROP CELLS FEW
[2018-07-04 11:48] LABS: TOXIC GRANULATION 2+
[2018-07-04 12:00] VITALS: BP 114/56
--- NOTE | 2018-07-04 14:46 | NUR ---
Verbal consult: MD request RD speak with pt at bedside regarding increased protein needs. Pt with hx of hep C with stage III cirrhosis. Attempted visit with pt at bedside however pt was sleeping and did not wake for RD visit. Written protein and cirrhosis nutrition therapy education left at patient's bedside with RD contact information provided. Pt currently on a CHO controlled diet with documented 100% PO intake meeting nutrient needs. Pt admit with upper GIB and abdominal pain with esophageal varices. Pt with ascites previously with low albumin however albumin now WNL after receiving IV albumin. [facility] 07/03. Will continue to follow. Recommendations: 1) Continue with CHO controlled diet 2) Monitor need for ONS or additional protein with meals 3) Monitor need for verbal education 4) Wt per rx Addendum: 07/04/18 at [address] Amended: Links added.
--- NOTE | 2018-07-04 15:00 | NUR ---
Patients Julito at bedside requesting copy of patients labs for today. I advised patient we dont release copies of records without MD permission. Patients stated he wanted to speak to administration because yesterday they had spoke to them and they said he could have copies of labs. I spoke to my Director Judah who spoke with the patients and we obtained a medical release form signed in the chart for labs today and for tomorrow. Patient signed paperwork. After, giving patient and her a copy of the labs today the patients wanted me to explain lab results and what they mean. I advised patient I could not interpret labs for him due to this is a doctors scope of practice, but when the Doctor comes he can go over the labs with me present. Patients again was upset about the fact they want to change doctors he feels his is declining. Patients wants the doctor to be changed and stated that someone said they could have a new doctor. Patients again spoke to Director. When doctor came to the floor he had the liver Doctor on the phone from [facility] who was in agreement if patient was stable to discharge her and have the [facility].
[2018-07-04] MEDS ORDERED: PANT40TA4 PO (16:46)
[2018-07-04] MEDS ORDERED: ALBUMIN 25% IV SCH (17:30)
--- NOTE | 2018-07-04 18:15 | NUR ---
Patients discharge instructions reviewed with patient and Julito at bedside. Patients and verbalized understanding. Per Dr Moseley request sent patient with discharge summary, ECG report, CT scan report Vascular report. retail shift leader RN Kalani and Toby will remove patients IV and continue discharge.
== END 2018-07-04 18:58 | disposition home or self-care (01) | DRG 241 ==
LOC: ER 13:26 → SUR 3N 17:18 → CMPBEDREQ 07-02 19:40 → SUR 3N 07-04 15:45
PROVIDERS: ADMIT Hospitalist; ATTEND Hospitalist
PROC: 0DJ08ZZ Inspection of Upper Intestinal Tract, Via Natural or Artificial Opening Endoscopic (ICD-10-PCS; principal; 2018-07-01)
DX: K29.71 Gastritis, unspecified, with bleeding (principal); N17.9 Acute kidney failure, unspecified; D69.6 Thrombocytopenia, unspecified; I95.9 Hypotension, unspecified; K76.6 Portal hypertension; R16.1 Splenomegaly, not elsewhere classified; R18.8 Other ascites; K92.0 Hematemesis; K74.60 Unspecified cirrhosis of liver; I85.01 Esophageal varices with bleeding; E86.1 Hypovolemia; E03.9 Hypothyroidism, unspecified; G89.29 Other chronic pain; K20.9 Esophagitis, unspecified; N18.9 Chronic kidney disease, unspecified; B19.20 Unspecified viral hepatitis C without hepatic coma; Z90.710 Acquired absence of both cervix and uterus; Z88.5 Allergy status to narcotic agent; Z88.0 Allergy status to penicillin; Z88.2 Allergy status to sulfonamides; Z88.8 Allergy status to other drugs, medicaments and biological substances; Z91.030 Bee allergy status; Z90.49 Acquired absence of other specified parts of digestive tract; Z95.0 Presence of cardiac pacemaker
CPT/HCPCS: 36415; 71045; 74176; 80048; 80053; 80076; 81001; 81025; 82140; 82272; 82570; 82948; 83690; 83735; 83935; 84156; 84300; 84484; 85025; 85027; 85610; 85730; 86885; 86900; 86901; 87070; 93005; 93975; 96361; 96374; 96375; 99152; 99285; A4620; C9113; G0378; J2060; J2250; J2270; J2354; J2405; J3010; J7030; P9047; Q9963